=== PATIENT | male | born 1950 | race Caucasian/White ===

== ENCOUNTER 2017-12-08 09:35 | Outpatient (CLI) | payer OTHER | END 2017-12-08 09:53 | disposition home or self-care (01) | LOC: RAD 09:35 | DX: R10.84 Generalized abdominal pain (principal); Z01.818 Encounter for other preprocedural examination ==

== ENCOUNTER 2017-12-08 09:37 | Outpatient (CLI) | payer OTHER | END 2017-12-08 09:53 | disposition home or self-care (01) | LOC: EKG 09:37 | DX: R10.84 Generalized abdominal pain (principal); Z01.810 Encounter for preprocedural cardiovascular examination ==

== ENCOUNTER 2017-12-08 09:39 | Outpatient (CLI) | payer OTHER | END 2017-12-08 09:53 | disposition home or self-care (01) | LOC: LAB 09:39 | DX: R10.84 Generalized abdominal pain (principal); Z01.812 Encounter for preprocedural laboratory examination ==

== ENCOUNTER 2017-12-15 05:35 | Day surgery (SDC) | payer OTHER ==
[2017-12-15] MEDS ORDERED: MIRALAX17 GM PO (09:43)
[2017-12-15] MEDS ORDERED: ULTRACET PO (09:43)
[2017-12-15] MEDS ORDERED: NEURONTIN300 MG PO (09:43)
[2017-12-15] MEDS ORDERED: ZOFRAN ODT4 MG PO (09:45)
== END 2017-12-15 11:40 | disposition home or self-care (01) ==
LOC: CIR.AMB 05:35
DX: K40.30 Unilateral inguinal hernia, with obstruction, without gangrene, not specified as recurrent (principal); K42.9 Umbilical hernia without obstruction or gangrene